=== PATIENT | male | born 1960 | race Caucasian/White ===

== ENCOUNTER → 2016-09-25 | Outpatient (CLI) | payer BC ==
[~2016-09-25] MED LIST: ACET325T96 PO; ASPI325T45 PO; CALC625T35 PO; DIPH25TA24 PO; MULT-506 PO; OMEG10007 PO; SIMV40TA2 PO
[2016-09-25 11:25] LABS: CHOLESTEROL/HDL RATIO 2.1; PROSTATE SPECIFIC ANTIGEN 0.637 ng/ml (0.000-4.000)
== END | disposition home or self-care (01) ==
LOC: C.LAB1850 09:11
PROVIDERS: ATTEND Internal Medicine
DX: E78.5 Hyperlipidemia, unspecified (principal); Z12.5 Encounter for screening for malignant neoplasm of prostate